=== PATIENT | male | born 1955 | race Caucasian/White ===

== ENCOUNTER → 2024-03-08 09:25 | Outpatient (REF) | payer BC, SELFPAY | LOC: RAD 09:25 | PROVIDERS: ATTENDING PHYSICIAN Nurse Practitioner | DX: Z91.09 Other allergy status, other than to drugs and biological substances (principal) | CPT/HCPCS: 71046 ==

== ENCOUNTER → 2024-06-02 06:24 | Day surgery (SDC) | payer BC, SELFPAY | LOC: GI 06:24 | PROVIDERS: ATTENDING PHYSICIAN Specialist | DX: K63.5 Polyp of colon (principal); K57.30 Diverticulosis of large intestine without perforation or abscess without bleeding; Z86.010 Personal history of colon polyps | CPT/HCPCS: 45380; 88305 ==

== ENCOUNTER 2024-08-20 06:23 | Day surgery (SDC) | payer BC, SELFPAY ==
[2024-08-20 08:11] VITALS: BMI 26.3
[2024-08-20 08:12] VITALS: BMI 26.3
[2024-08-20 08:15] VITALS: BP 152/95
[2024-08-20 10:25] VITALS: BP 111/75
[2024-08-20 10:30] VITALS: BP 129/82
== END 2024-08-20 11:11 | disposition home or self-care (01) ==
LOC: GI 06:23
PROVIDERS: ATTENDING PHYSICIAN Internal Medicine Gastroenterology
DX: K64.0 First degree hemorrhoids (principal); K57.30 Diverticulosis of large intestine without perforation or abscess without bleeding; D49.0 Neoplasm of unspecified behavior of digestive system; D12.6 Benign neoplasm of colon, unspecified; K63.5 Polyp of colon
CPT/HCPCS: 45390; 88305

== ENCOUNTER 2025-09-16 06:21 | Day surgery (SDC) | payer BC, SELFPAY | END 2025-09-16 09:27 | disposition home or self-care (01) | LOC: GI 06:21 | PROVIDERS: ATTENDING PHYSICIAN Specialist | DX: Z12.11 Encounter for screening for malignant neoplasm of colon (principal); K63.89 Other specified diseases of intestine; K57.30 Diverticulosis of large intestine without perforation or abscess without bleeding; K51.40 Inflammatory polyps of colon without complications; Z86.0101 Personal history of adenomatous and serrated colon polyps | CPT/HCPCS: 45385; 45380; 88305 ==

== ENCOUNTER → 2025-10-19 08:59 | Outpatient (REF) | payer SELFPAY | LOC: HWRAD 08:59 | PROVIDERS: ATTENDING PHYSICIAN Hospitalist | DX: E78.5 Hyperlipidemia, unspecified (principal) | CPT/HCPCS: 75571 ==